=== PATIENT | male | born 1965 | race Caucasian/White ===

== ENCOUNTER 2019-02-12 06:38 | Observation (INO) | payer OTHER ==
--- OUTSIDE RECORDS SUMMARY | 2019-02-12 06:43 | XMS REPORT | Continuity of Care Document ---
:1965 External Reference #:[id number] Author Name Kaila Francisco PA-C Address [address] [place] [address] Care Team Providers Name Role Phone Phoenix Levi M.D. Care Team Information Advertising Supervisor Unavailable Jethro Kaplan MD Primary Care Physician Unavailable Payers Date Identification Numbers Payment Provider Subscriber Policy Number: [id number] [facility] Group Number: [id number] Group Name: [id number] [place] [address] PayID: [id number] Problems Active Problems Provider Date Essential hypertension Onset: 11/12/2006 Social History Type Date Description Comments Sex Unknown Occupation Coach Driver Tobacco Use Start: Unknown Never Smoked Cigarettes Tobacco Use Start: Unknown End: Unknown current.no Tobacco Use Start: Unknown End: Unknown current.no Smokeless Tobacco current.no ETOH Use Current Alcohol Use Occasionally Tobacco Use Start: Unknown Patient has never smoked Smoking Status Reviewed: 01/26/19 Patient has never smoked Allergies, Adverse Reactions, Alerts Description No Known Drug Allergies Medications Active Medications SIG Qnty Indications Ordering Date Provider Nasonex 2qd - Use 2 [place] 90Days 380.23 Mamadou Ramirez 11/11/2007 50mcg/Act Susp In Each Nostril MD Wendy Every Day Levothyroxine Sodium Jethro Kaplan MD 125mcg Tablets Potassium Chloride ER Jethro Kaplan MD 10Meq Tablets ER Xyzal Allergy 24HR 1 by mouth every Unknown 5mg day Tablets Metoprolol Succinate Take 1 Tablet By Unknown ER Mouth Once Daily 25mg Tablets ER 24HR Spironolactone/Hydroch Take 1 Tablet By Unknown lorothiazide Mouth Once Daily 25-25mg For High Blood Tablets Pressure Amlodipine Besylate Take 1 Tablet By Unknown 10mg Mouth Once Daily Tablets History Medications Ciprodex 4 drops infected 7.500ml Mamadou Dumont. 03/05/2017 - 0.3-0.1% Suspension ear twice a day MD Wendy 02/20/2018 apply rebate rx bin: [id number] rxpcn: loyalty rxgrp:[id number] ambulance paramedic: [id number]) id#[id number] Ciprodex 4 drops infected 1Bottle Mamadou Dumont. 09/01/2014 - 0.3-0.1% Suspension ear bid for 7 days MD Wendy 03/05/2017 apply rebate rx bin: [id number] rxpcn: [employer] rxgrp:[id number] ambulance paramedic: [id number]) id#[id number] Calcium Carbonate/Vitamin 1 po tid with meals 120tabs Mamadou Ramirez 2013 - D MD Wendy 03/05/2017 [id number] Tablets Ciprodex 4 drops infected 1Bottle Mamadou Dumont. 07/11/2011 - 0.3-0.1% Suspension ear bid for 10 days MD Wendy 08/21/2013 apply rebate rx bin: [id number] rxpcn: loyalty rxgrp:[id number] ambulance paramedic: [id number]) id#[id number] Ciprodex 4 drops to right 1Bottle Mamadou Dumont. 06/14/2010 - 0.3-0.1% Suspension ear twice daily for MD Wendy 11/12/2012 7 days Dermotic 4 drops to affected 1Bottle 384.2 Mamadou Julia. 07/27/2009 - 0.01% Oil ear twice a day for 0 MD Wendy 06/14/2010 14 days Lotrimin AF 4 drops to right 1Bottle 380.2 Mamadou Dumotn. 07/13/2009 - 1% Solution ear twice a day for 3 MD Wendy 06/14/2010 2 weeks Ciprodex 4 drops right ear 2units 380.2 Mamadou Dumont. 06/24/2009 - 0.3-0.1% Suspension bid 3 MD Wendy 06/14/2010 Clarinex 1 PO qd 30tabs 380.2 Mamadou Ramirez 11/15/2006 - 5mg Tablets 3 MD Wendy 11/07/2007 Nasonex Intranasal [place] 2 puff Each Nostril 17gm 380.2 Mamadou Ramirez 2006 - 50mcg Daily 3 MD Wendy 11/11/2007 Suspension Floxin 4 GTT To Right Ear 10units 380.2 Mamadou Ramirez 11/15/2006 - 0.3% Solution Twice A Day For 10 3 MD Wendy 11/07/2007 Days Tylenol Unknown 11/12/2006 - 11/07/2007 Lisinopril Unknown - 06/02/2008 ? BP Med Unknown - 09/02/2008 Avapro Unknown - 08/21/2013 Antonol Unknown - 11/12/2012 Hydrochlorothiazide Unknown - 03/05/2017 Amlodipine Unknown - 03/05/2017 Atenolol Unknown - 03/05/2017 Methimazole Unknown - 09/02/2013 Levothyroxine Sodium Unknown - 03/05/2017 Hydrochlorothiazide 1 tab daily Jethro Kaplan - 25mg 01/27/2019 Tablets Atenolol 1 by mouth every Unknown - 25mg Tablets day 01/27/2019 Vital Signs Date Vital Result Comment 01/27/2019 2:59pm Weight 345.00 lb Weight 156.492 kg Height 74.6 inches 6'2.60" Height in cm's 189.5 cm BMI (Body Mass Index) 43.6 kg/m2 02/20/2018 3:03pm Weight 355.00 lb Weight 161.028 kg Height 74.6 inches 6'2.60" Height in cm's 189.5 cm BMI (Body Mass Index) 44.8 kg/m2 03/05/2017 11:00am BP Systolic 180 mmHg BP Diastolic 93 mmHg Heart Rate 60 /min Weight 350.00 lb Weight 158.760 kg Height 74.6 inches 6'2.60" Height in cm's 189.5 cm BMI (Body Mass Index) 44.2 kg/m2 04/13/2015 3:01pm BP Systolic 161 mmHg BP Diastolic 92 mmHg Heart Rate 55 /min Respiratory Rate 16 /min Weight 364.00 lb Weight 165.110 kg Height 74.6 inches 6'2.60" Height in cm's 189.5 cm BMI (Body Mass Index) 46.0 kg/m2 04/07/2014 2:59pm BP Systolic 164 mmHg BP Diastolic 92 mmHg Heart Rate 59 /min Respiratory Rate 17 /min Weight 364.00 lb Weight 165.110 kg Height 74.6 inches 6'2.60" Height in cm's 189.5 cm BMI (Body Mass Index) 46.0 kg/m2 09/30/2013 2:57pm BP Systolic 173 mmHg BP Diastolic 107 mmHg Heart Rate 60 /min Respiratory Rate 17 /min Weight 226.00 lb Weight 102.514 kg Height 74.6 inches 6'2.60" Height in cm's 189.5 cm BMI (Body Mass Index) 28.5 kg/m2 09/04/2013 10:02am BP Systolic 147 mmHg BP Diastolic 95 mmHg Heart Rate 86 /min Respiratory Rate 16 /min Weight 226.00 lb Weight 102.514 kg Height 74.6 inches 6'2.60" Height in cm's 189.5 cm BMI (Body Mass Index) 28.5 kg/m2 09/02/2013 3:44pm BP Systolic 165 mmHg BP Diastolic 93 mmHg Heart Rate 87 /min Respiratory Rate 17 /min Weight 226.00 lb Weight 102.514 kg Height 74.6 inches 6'2.60" Height in cm's 189.5 cm BMI (Body Mass Index) 28.5 kg/m2 08/21/2013 11:17am BP Systolic 147 mmHg BP Diastolic 82 mmHg Heart Rate 53 /min Respiratory Rate 17 /min Weight 226.00 lb Weight 102.514 kg Height 74.6 inches 6'2.60" Height in cm's 189.5 cm BMI (Body Mass Index) 28.5 kg/m2 11/27/2012 9:15am BP Systolic 146 mmHg BP Diastolic 76 mmHg Heart Rate 72 /min Respiratory Rate 16 /min Weight 226.00 lb Weight 102.514 kg Height 74.6 inches 6'2.60" Height in cm's 189.5 cm BMI (Body Mass Index) 28.5 kg/m2 11/12/2012 9:50am BP Systolic 146 mmHg BP Diastolic 82 mmHg Heart Rate 72 /min Respiratory Rate 16 /min Weight 226.00 lb Weight 102.514 kg Height 74.6 inches 6'2.60" Height in cm's 189.5 cm BMI (Body Mass Index) 28.5 kg/m2 09/02/2008 10:15am Heart Rate 80 /min Respiratory Rate 16 /min Weight 310.00 lb Weight 140.616 kg 06/02/2008 9:26am BP Systolic 168 mmHg BP Diastolic 109 mmHg Heart Rate 83 /min Respiratory Rate 16 /min 11/07/2007 3:03pm BP Systolic 181 mmHg BP Diastolic 110 mmHg Heart Rate 71 /min Respiratory Rate 16 /min 05/08/2007 3:17pm BP Systolic 165 mmHg BP Diastolic 96 mmHg Heart Rate 68 /min Respiratory Rate 16 /min 11/15/2006 2:29pm BP Systolic 156 mmHg BP Diastolic 118 mmHg Heart Rate 87 /min Respiratory Rate 16 /min Results Test Date Facility Test Result H/L Range Note Laboratory test 08/28/2013 [facility] Calcium 8.9 mg/ dL 8.6-10.3 finding c/o [place] [address] [phone] Procedures Date Code Description Status 08/28/2013 68314 Thyroidectomy, Total Completed 08/28/2013 22344 Thyroidectomy, Total Completed 12/23/2012 95845 Tympanometry Completed 12/23/2012 97492 Comprehensive Audiogram Completed 06/14/2010 47021 Binocular Microscopy Completed 07/01/2009 95889 Binocular Microscopy Completed 06/24/2009 56197 Binocular Microscopy Completed 06/15/2009 83213 Insurance Credit-Unclaimed Retraction Completed 04/03/2007 06545 Tympanostomy W/Tube Local Or Topical Anes. Completed 11/15/2006 63119 Tympanometry Completed 11/15/2006 11025 Comprehensive Audiogram Completed Encounters Type Date Location Provider Dx Diagnosis Office Visit 01/27/2019 [facility] Jewel Chin7.33 Obstructive sleep 3:00p 07/15/07 PA-C apnea (adult) (pediatric) Office Visit 02/20/2018 [facility] Mamadou Holloway7.33 Obstructive sleep 2:45p 07/15/07 MD Wendy apnea (adult) (pediatric) H72.01 Central perforation of tympanic membrane, right ear C73 Malignant neoplasm of thyroid gland Office Visit 03/05/2017 [facility] Mamadou Ramirez G47.33 Obstructive sleep 10:45a 07/15/07 MD Wendy apnea (adult) (pediatric) H72.01 Central perforation of tympanic membrane, right ear C73 Malignant neoplasm of thyroid gland Office Visit 04/13/2015 [facility] Mamadou Ramirez H72.91 Unspecified 3:00p 07/15/07 MD Wendy perforation of tympanic membrane, right ear C73 Malignant neoplasm of thyroid gland G47.30 Sleep apnea, unspecified Office 04/07/2014 [facility] Mamadou Ramirez 384.20 Perforation Of Tympanic Visit 3:00p 07/15/07 MD Wendy Membrane/Unspecified 193 Neoplasm, Malignant, Thyroid Gland 780.57 Apnea, Sleep Not Elsewhere Classified /Unspecified Office Visit 08/21/2013 11:15a [facility],After 07/15/07 Mamadou Ramirez 241.0 Nodule, MD Wendy Thyroid 242.20 Hyperthyroidism, Multinodular W/O Thyrotoxic Office 11/27/2012 [facility]After Mamadou Ramirez 384.20 Perforation Of Tympanic Visit 9:15a 07/15/07 MD Wendy Membrane/Unspecified Office 11/12/2012 [facility],After Mamadou Ramirez 384.20 Perforation Of Tympanic Visit 9:45a 07/15/07 MD Wendy Membrane/Unspecified 381.10 Otitis Media, Chronic Simple Or Unspecified Office 07/11/2011 [facility] Mamadou Ramirez 384.20 Perforation Of Tympanic Visit 1:45p 07/15/07 MD Wendy Membrane/Unspecified 381.10 Otitis Media, Chronic Simple Or Unspecified Office 07/06/2010 [facility],After Mamadou Ramirez 384.20 Perforation Of Tympanic Visit 11:30a 07/15/07 MD Wendy Membrane/Unspecified 381.10 Otitis Media, Chronic Simple Or Unspecified 401.9 High Blood Pressure Or Hypertension/Unspecified Office 06/14/2010 [facility],After Mamadou Ramirez 384.20 Perforation Of Tympanic Visit 11:15a 07/15/07 MD Wendy Membrane/Unspecified 381.10 Otitis Media, Chronic Simple Or Unspecified 401.9 High Blood Pressure Or Hypertension/Unspecified Office 08/11/2009 [facility],After Mamadou Ramirez 384.20 Perforation Of Tympanic Visit 3:30p 07/15/07 MD Wendy Membrane/Unspecified 381.10 Otitis Media, Chronic Simple Or Unspecified 401.9 High Blood Pressure Or Hypertension/Unspecified Office 07/27/2009 [facility],After Mamadou Ramirez 384.20 Perforation Of Tympanic Visit 3:15p 07/15/07 MD Wendy Membrane/Unspecified 381.10 Otitis Media, Chronic Simple Or Unspecified 401.9 High Blood Pressure Or Hypertension/Unspecified Office 07/13/2009 [facility],After Mamadou Ramirez 384.20 Perforation Of Tympanic Visit 1:30p 07/15/07 MD Wendy Membrane/Unspecified 380.23 Otitis Externa, Chronic 401.9 High Blood Pressure Or Hypertension/Unspecified Office Visit 07/01/2009 9:45a [facility],After 07/15/07 [place], 380.23 Otitis Sherry PUBLIC RELATIONS CONSULTANT Externa, Chronic 384.20 Perforation Of Tympanic Membrane/Unspecified 401.9 High Blood Pressure Or Hypertension/Unspecified Office Visit 06/24/2009 10:45a [facility],After 07/15/07 [place], 380.23 Otitis Sherry PUBLIC RELATIONS CONSULTANT Externa, Chronic 384.20 Perforation Of Tympanic Membrane/Unspecified 401.9 High Blood Pressure Or Hypertension/Unspecified Office Visit 09/02/2008 [facility],After Mamadou Ramirez 780.57 Apnea, Sleep Not 10:15a 07/15/07 MD Wendy Elsewhere Classified /Unspecified 384.20 Perforation Of Tympanic Membrane/Unspecified 401.9 High Blood Pressure Or Hypertension/Unspecified Office 06/02/2008 [facility],After Mamadou Ramirez 384.20 Perforation Of Tympanic Visit 9:15a 07/15/07 MD Wendy Membrane/Unspecified 780.57 Apnea, Sleep Not Elsewhere Classified /Unspecified 401.9 High Blood Pressure Or Hypertension/Unspecified Office 11/07/2007 [facility],After Mamadou Ramirez 389.03 Hearing Loss, Visit 2:45p 07/15/07 MD Wendy Conductive/Middle Ear 384.20 Perforation Of Tympanic Membrane/Unspecified 477.8 Rhinitis, Perennial, Allergy 401.9 High Blood Pressure Or Hypertension/Unspecified 786.09 Snoring Office Visit 05/08/2007 [facility],After Mamadou Ramirez 381.81 Dysfunction Of 3:00p 07/15/07 MD Wendy Eustachian Tube 389.03 Hearing Loss, Conductive/Middle Ear 401.9 High Blood Pressure Or Hypertension/Unspecified Office Visit 02/21/2007 [place],After Mamadou Ramirez 381.81 Dysfunction Of 11:00a 07/15/07 MD Wendy Eustachian Tube 380.23 Otitis Externa, Chronic 380.4 Impacted Cerumen / Wax 401.9 High Blood Pressure Or Hypertension/Unspecified 477.8 Rhinitis, Perennial, Allergy Office Visit 11/15/2006 [facility],After Mamadou Ramirez 381.81 Dysfunction Of 2:45p 07/15/07 MD Wendy Eustachian Tube 462-2 Sore Throat 401.9 High Blood Pressure Or Hypertension/Unspecified 389.03 Hearing Loss, Conductive/Middle Ear
[2019-02-12] MEDS ORDERED: NS 0.9% 1000 ML** 1,000 ML IV ONE (06:46)
[2019-02-12] MEDS ORDERED: Diltiazem IV push/loading dose 5 MG/ML 5 ML vial (25 mg) IV SLOW PU ONE (06:51)
--- NOTE | 2019-02-12 06:55 | ED ---
Palpitations / Dysrhythmia - HPI Summary HPI Summary: Patient is a 53-year-old male who presents emergency department for palpitations intermittently times one week. Patient states has been having a sensation that his heart is "flip flopping" intermittently for 1 week. Patient states since last night feeling has been constant. He notes history of thyroid cancer with resection and is currently taking Synthroid. Patient states he's felt irregular heartbeat in the past but has never been diagnosed with any arrhythmias does not take any medication for his heart. Otherwise past medical history of obesity and hypertension. Symptoms are moderate in severity. No current modifying factors. - History of Current Complaint Time Seen by Provider: 02/12/19 06:45 Hx Obtained From: Patient - Allergy/Home Medications Allergies/Adverse Reactions: Allergies Allergy/AdvReac Type Severity Reaction Status Date / Time No Known Allergies Allergy Verified 08/21/17 10:53 Home Medications: Home Medications Metoprolol Succinate [Metoprolol Succinate ER] 25 mg PO DAILY 02/12/19 [History Confirmed 02/12/19] PMH/Surg Hx/FS Hx/Imm Hx Previously Healthy: Yes Endocrine/Hematology History: Reports: Hx Thyroid Disease Cardiovascular History: Reports: Hx Hypertension Denies: Other Cardiovascular Problems/Disorders Respiratory History: Denies: Other Respiratory Problems/Disorders GI History: Denies: Other GI Disorders History: Denies: Other Problems/Disorders Musculoskeletal History: Reports: Hx Tendonitis - RENE HEELS Denies: Other Musculoskeletal History Sensory History: Denies: Hx Contacts or Glasses, Hx Hearing Aid Opthamlomology History: Denies: Hx Contacts or Glasses Neurological History: Denies: Other Neuro Impairments/Disorders - Surgical History Surgery Procedure, Year, and Place: RIGHT ANKLE 1982, [facility] [place]. 2 UMBILICAL HERNIA 1995, [facility] [place]. RIGHT EARDRUM 1999, [facility] [place] Hx Anesthesia Reactions: No Infectious Disease History: Denies: Traveled Outside the [place] in Last 30 Days - Family History Known Family History: Positive: Non-Contributory - Social History Occupation: Employed Full-time Lives: With Family Alcohol Use: Rare Alcohol Amount: 4 DRINKS A MONTH Substance Use Type: Reports: None Hx Tobacco Use: No Have You Smoked in the Last Year: No Review of Systems Constitutional: Negative Negative: Fever, Chills Positive: Palpitations Respiratory: Negative Negative: Shortness Of Breath Gastrointestinal: Negative Neurological: Negative All Other Systems Reviewed And Are Negative: Yes Physical Exam Triage Information Reviewed: Yes Vital Signs Reviewed: Yes Appearance: Positive: Well-Appearing - Pt. sitting up in bed in NAD. present. Skin: Positive: Warm, Dry Head/Face: Positive: Normal Head/Face Inspection Eyes: Positive: Normal, EOMI Neck: Positive: Supple Respiratory/Lung Sounds: Positive: Breath Sounds Present Cardiovascular: Positive: IRR, Tachycardia Musculoskeletal: Positive: Normal, Strength/ROM Intact Neurological: Positive: Normal, CN Intact II-III Psychiatric: Positive: Affect/Mood Appropriate Diagnostics - Laboratory Result Diagrams: 02/12/19 06:51 02/12/19 06:57 Lab Statement: Any lab studies that have been ordered have been reviewed, and results considered in the medical decision making process. Course/Dx - Course Course Of Treatment: Pt. presenting with intermittent palpitations x 1 week. BP stable. ECG shows rapid a fib. ECG done at 0639 shows atrial fibrillation at a rate of 135bpm. Pt. started on IV fluids and given a dose of 20mg IV cardizem. Rate slowed into 80-100. Case discussed with Dr. Rossi, hospitalist, and she will admit for new onset afib. Pt. has remained stable in ER. - Diagnoses Differential Diagnosis/HQI/PQRI: Positive: Panic Disorder, Paroxymal SVT, Pericarditis Provider Diagnoses: Atrial fibrillation Discharge - Sign-Out/Discharge Documenting (check all that apply): Patient Departure Patient Received Moderate/Deep Sedation with Procedure: No - Discharge Plan Condition: Stable Disposition: ADMITTED TO [facility] Referrals: Jethro Kaplan MD [Primary Care Provider] - - Billing Disposition and Condition Condition: STABLE Disposition: Admitted to [facility]
[2019-02-12 07:23] LABS: ABS Basophils 0.1 10^3/ul (0-0.2); ABS Eosinophils 0.4 10^3/ul (0-0.6); ABS Lymphocytes 2.5 10^3/ul (1.0-4.8); ABS Monocytes 0.6 10^3/ul (0-0.8); ABS Neutrophils 4.6 10^3/ul (1.5-7.7); Eosinophil % 4.6 %; Hematocrit 46 % (42-52); Hemoglobin 16.4 g/dL (14.0-18.0); Lymphocyte % 30.5 %; Mean Corpuscular HGB Conc 36 g/dL (31-36); Mean Corpuscular Hemoglobin 29 pg (27-31); Mean Corpuscular Volume 80 fL (80-94); Mean Platelet Volume 8.3 fL (7.4-10.4); Nucleated Red Blood Cells % 0.1; Platelet Count 251 10^3/uL (150-450); Red Blood Count 5.77 10^6 /uL (4.18-5.48); Red Cell Distribution Width 13 % (10-15); White Blood Count 8.2 10^3/uL (3.5-10.8)
[2019-02-12 07:25] LABS: INR 0.97 (0.82-1.09)
[2019-02-12 07:32] LABS: Albumin 4.2 g/dL (3.2-5.2); Albumin/Globulin Ratio 1.4 (1-3); Calcium 9.4 mg/dL (8.6-10.3); EGFR African American 101.1 (>60); EGFR Non-African American 83.6 (>60); Globulin 2.9 g/dL (2-4); Magnesium 2.1 mg/dL (1.9-2.7); Potassium 3.4 mmol/L (3.5-5.0); Total Bilirubin 0.6 mg/dL (0.2-1.0); Total Protein 7.1 g/dL (6.4-8.9)
[2019-02-12] MEDS ORDERED: Metoprolol Succinate XL TAB* 25 MG PO ONE (07:43)
[2019-02-12] MEDS ORDERED: Potassium Chlor TAB* 20 MEQ TAB.ER PO ONE (07:58)
[2019-02-12] MEDS ORDERED: Diltiazem TAB* 30 MG PO ONE (08:36)
[2019-02-12 08:39] LABS: TSH (Thyroid Stimulating Horm) 0.1 mcIU/mL (0.34-5.60)
[2019-02-12] MEDS: Apixaban* 5 MG TAB PO SCH ×2 (08:57→20:11)
[2019-02-12] MEDS ORDERED: fentaNYL* 50 MCG/ML 2 ML VIAL (100 MCG VIAL) ONE ×2 (09:56→10:42)
[2019-02-12] MEDS ORDERED: Midazolam* 1 MG/ML 5 ML VIAL (5 MG) ONE (09:56)
[2019-02-12] MEDS ORDERED: Naloxone* 0.4 MG/ML 1 ML VIAL ONE (09:57)
[2019-02-12] MEDS ORDERED: Lidocaine 2% VISCOUS* 15 ML UDC ONE ×2 (09:57)
[2019-02-12] MEDS ORDERED: Flumazenil* 0.1 MG/ML 5 ML MDV ONE (09:57)
--- NOTE | 2019-02-12 10:13 | HP ---
CC: Dr. Nguyen; Dr. Levi; Dr. Pleitez; Dr. Kaplan * HISTORY AND PHYSICAL: DATE OF ADMISSION: 02/12/19 PRIMARY CARE PROVIDER: Dr. Kaplan. CHIEF COMPLAINT: Palpitations. HISTORY OF PRESENT ILLNESS: Bronson Lan is a 53-year-old male with history of obesity, hypertension, obstructive sleep apnea, status post total thyroidectomy for thyroid cancer, who presented to the hospital complaining of palpitation for approximately couple of days. The patient stated that ever since Saturday he would have an episode of fast irregular heartbeat that would resolve but they would get more and more frequent and for the past couple of days he would have the sensation almost all the time. He denies any chest pain , shortness of breath. His exercise tolerance had been fine. Nevertheless, it concerned him and he finally came into the emergency department today for evaluation. He was noted to be in atrial fibrillation with rapid ventricular response with heart rate in the 120s. He is going to be placed on overnight observation, likely cardioverted later on today and placed on anticoagulation. PAST MEDICAL HISTORY: 1. History of status post total thyroidectomy for papillary thyroid cancer under the care of Dr. Nguyen and Dr. Levi. 2. History of obstructive sleep apnea, under the care of Dr. Nguyen. The patient uses CPAP. 3. History of hypertension. 4. Status post transumbilical hernia repair. 5. History of right ankle ORIF. 6. History of tympanic membrane surgery in the past for perforation. MEDICATIONS: At home include: 1. Metoprolol succinate 25 mg daily. 2. Amlodipine 10 mg at bedtime. 3. Potassium chloride 10 mEq b.i.d. 4. Levothyroxine 250 mcg daily. 5. Hydrochlorothiazide 25 mg at bedtime. ALLERGIES: No known drug allergies. FAMILY HISTORY: Positive for brother who is in his 50s and is dealing with metastatic colon cancer that was diagnosed 4 years prior. Another brother with history of heart disease and cardiomyopathy in his 50s. He was extremely obese as per patient. SOCIAL HISTORY: The patient denies any tobacco or drug use. He drinks alcohol rarely. 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 His , Brianna, is his surrogate. He is a full code. REVIEW OF SYSTEMS: Please see the history of present of illness. All the remaining 12 systems were reviewed with the patient and were otherwise negative. PHYSICAL EXAMINATION GENERAL: The patient is a pleasant 53-year-old obese male with a BMI of 46, who appears in no acute distress. Alert, awake, and oriented x3. VITAL SIGNS: Blood pressure of 150/94, heart rate of 112 and irregularly irregular, respiratory rate 15, oxygen saturation 97% on room air, temperature of 97.5. HEENT: Head: Atraumatic, normocephalic. Eyes: Pupils are equal and reactive to light and accommodation. Oropharynx is clear. Mucosa moist. NECK: Supple. No JVD. No bruits bilaterally. RESPIRATORY: Clear to auscultation bilaterally. CARDIOVASCULAR: Irregularly irregular rhythm. No murmur. ABDOMEN: Soft, nontender. Bowel sounds are present in all 4 quadrants. EXTREMITIES: There is no edema. Pulses are +2 bilaterally. No clubbing or cyanosis. NEUROLOGIC EVALUATION: Speech is clear. Cranial nerves II through XII are grossly intact. Motor strength is 5/5 bilaterally. SKIN: On evaluation of the skin, no ecchymotic areas or rashes noted. PSYCHIATRIC EVALUATION: Oriented x3 with no evidence of anxiety or depression. LABORATORY DATA: Showed white blood cell count of 8.2, hemoglobin of 16.4, hematocrit of 46, and platelets of 251. INR of 0.97. Sodium was 138, potassium 3.4, chloride 103, carbon dioxide 26, BUN 19, creatinine 0.95. Liver function tests unremarkable. Alkaline phosphatase elevated at 120. Troponin of 0. TSH of 0.1. The patient's EKG showed atrial fibrillation with a heart rate of 135 with possible old inferior infarct in leads II, III, and aVF with Q waves in leads II , III, and aVF. Portable chest x-ray, impression: "No focal airspace consolidation." ASSESSMENT AND PLAN: 1. In regard to patient's atrial fibrillation, I discussed the case with Dr. Pleitez who will likely cardiovert the patient later on today and perform a PETROS. For the time being, the patient is going to get his Toprol-XL as well as dose of Cardizem p.o. and anticoagulation with Eliquis that was discussed with the patient. 2. In regard to patient's postsurgical hypothyroidism, that had been controlled with Synthroid. His TSH is 0.1. I suspect that the patient's TSH is supposed to be somewhat suppressed due to his history of papillary thyroid cancer, but I will briefly discuss it with Dr. Levi to make that the patient is at correct dose in face of his new cardiac arrhythmia. 3. In regard to patient's hypertension, his metoprolol is going to be continued. 4. For DVT prophylaxis, the patient will be placed on Eliquis as mentioned above. 5. For obstructive sleep apnea, the patient is going to be continued on his CPAP from home. 6. Patient's code status is full. His surrogate is his . TIME SPENT: Approximately 65 minutes was spent on admission of this patient; more than half that time was spent [id number] with the patient during the interview and physical exam. [id number] #: [id number] MTDD
--- NOTE | 2019-02-12 10:27 | CONSULT ---
Subjective Date of Service: 02/12/19 Interval History: Admission and consult Date: 02/12/19 Provider: Nella Rossi MD/Hospitalist PCP Dr. Kaplan CHIEF COMPLAINT: Palpitations Reason for consult: Atrial fibrillation HISTORY OF PRESENT ILLNESS: Bronson Lan is a 53-year-old man with a history as below. He has had brief palpitations in the past. He now has has had palpitations ongoing since at least Saturday. He denies any chest discomfort, change in breathing or presyncope/syncope. His 02 saturations are high 90's on room air. He was noted to have difficult to control ventricular rates in the ER. He denies any gastroesophageal disorder or difficult swallowing. He does not take aspirin. He has rare NSAID use and is agreeable to use acetaminophen instead. PAST MEDICAL HISTORY: 1. History of status post total thyroidectomy for papillary thyroid cancer under the care of Dr. Nguyen and Dr. Levi. 2. History of obstructive sleep apnea, under the care of Dr. Nguyen. Adherent with CPAP. 3. History of hypertension, recently had spironolactone-hctz added to regimen 4. Status post transumbilical hernia repair. 5. History of right ankle ORIF. 6. History of tympanic membrane surgery in the past for perforation. MEDICATIONS: At home include: 1. Metoprolol succinate 25 mg daily. 2. Amlodipine 10 mg at bedtime. 3. Potassium chloride 10 mEq b.i.d. 4. Levothyroxine 250 mcg daily. 5. spironolactone-Hydrochlorothiazide 25 mg at bedtime. ALLERGIES: No known drug allergies. FAMILY HISTORY: Positive for brother who is in his 50s and is dealing with metastatic colon cancer that was diagnosed 4 years prior. Another brother with history of heart disease and cardiomyopathy in his 50s. He was extremely obese as per patient. SOCIAL HISTORY: The patient denies any tobacco or drug use. He drinks alcohol rarely. 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 His , Brianna , is his surrogate and she is present. He is a full code. Medications Active Medications: Apixaban (Eliquis*) 5 mg PO BID [facility] Last Admin: 02/12/19 08:57 Dose: 5 mg Sodium Chloride (Ns 0.9% 1000 Ml) 1,000 mls @ 75 mls/hr IV PER RATE [facility] Levothyroxine Sodium (Synthroid Tab*) 250 mcg PO 0600 [facility] Metoprolol Succinate (Toprol Xl Tab*) 25 mg PO DAILY [facility] Potassium Chloride (Klor Con Er Tab*) 10 meq PO BID [facility] Home Medications: Levothyroxine TAB* [Synthroid TAB*] 250 mcg PO QAM 08/16/17 [History Confirmed 02/12/19] Hydrochlorothiazide TAB* [Hydrodiuril TAB*] 25 mg PO BEDTIME 08/21/17 [History Confirmed 02/12/19] Potassium Chloride 10 meq PO BID 08/21/17 [History Confirmed 02/12/19] amLODIPine TAB* [Norvasc 5 mg TAB*] 10 mg PO BEDTIME 08/21/17 [History Confirmed 02/12/19] Metoprolol Succinate [Metoprolol Succinate ER] 25 mg PO DAILY 02/12/19 [History Confirmed 02/12/19] Review of Systems - Measurements Intake and Output: Intake and Output Last 24 Hours 02/10/19 02/11/19 02/12/19 02/13/19 06:59 06:59 06:59 06:59 Intake Total 1000 Balance 1000 Weight 340 lb Intake: IV Fluids 1000 - Review of Systems Constitutional Symptoms: Negative: Weight Gain, Weight Loss, Weakness, Fatigue, Fever, Night Sweats Dermatology: Negative: Rash, Skin Lesions HEENT: Negative: Change in Hearing, Vertigo, Dental Problems Eyes: Negative: Change in Vision, Double Vision Thyroid: Positive: Palpitations Negative: Thyroid Nodule, Cold Intolerance, Heat Intolerance, Weight Loss, Weight Gain Pulmonary: Negative: Respiratory Distress, Shortness of Breath, Home Oxygen Cardiology: Positive: Palpitations Negative: Chest Pain, Shortness of Breath, Swelling of Ankles, Peripheral Vascular Dis, Edema, Faintness, Syncope, Claudication, Paroxysmal Nocturnal Dyspnea, Orthopnea Gastroenterology: Negative: Abdominal Pain, Nausea, Vomiting, Anorexia, Haematemesis, Melena Genital - Urinary: Negative: Dysuria, Hematuria, Nocturia Musculoskeletal: Negative: Joint Pain, Joint Stiffness Endocrinology: Negative: Family Hx Endocrine Disorders, Obesity, Diabetes, Hyperglycemia, Hypoglycemia, Diabetic Foot Ulcers, Calluses, Hirsutism, Menstrual Abnormalities , Polydipsia, Polyuria, Gynecomastia, Pituitary Disease, Other Hematologic/Lymphatic: Negative: Use of Anticoagulant, Use of Antiplatelet Drugs Neurology: Negative: Change in Speech, Change in Sphincter Function, Change in Walking Psychiatry: Negative: Unusual Anxiety, Suicidal Ideation Allergic/Immunologic: Negative: Hx HIV, Immunocompromise Review of Systems Statement: All other review of systems negative, unless stated above. Objective Vital Signs: Temp Pulse Resp BP Pulse Ox 98.1 F 110 20 145/89 96 02/12/19 09:21 02/12/19 10:01 02/12/19 10:07 02/12/19 09:51 02/12/19 10:01 Appearance: nad, pleasant Ears/Nose/Mouth/Throat: Clear Oropharnyx, Mucous Membranes Moist Neck: NL Appearance and Movements; NL JVP, Trachea Midline Respiratory: Symmetrical Chest Expansion and Respiratory Effort, Clear to Auscultation Cardiovascular: - - irregularly irregular, no significant murmur Abdominal: - - soft, obese, nontender Lymphatic: No Cervical Adenopathy Extremities: No Edema, No Clubbing, Cyanosis Skin: No Rash or Ulcers Neurological: Alert and Oriented x 3 Laboratory Results: 02/12/19 06:51 02/12/19 06:57 INR (Anticoag Therapy) 0.97 (0.82-1.09) 02/12/19 06:57 Total Bilirubin 0.60 mg/dL (0.2-1.0) 02/12/19 06:57 AST 17 U/L (13-39) 02/12/19 06:57 ALT 22 U/L (7-52) 02/12/19 06:57 Alkaline Phosphatase 120 U/L (34-104) H 02/12/19 06:57 Total Protein 7.1 g/dL (6.4-8.9) 02/12/19 06:57 Albumin 4.2 g/dL (3.2-5.2) 02/12/19 06:57 Globulin 2.9 g/dL (2-4) 02/12/19 06:57 Albumin/Globulin Ratio 1.4 (1-3) 02/12/19 06:57 TSH 0.10 mcIU/mL (0.34-5.60) L 02/12/19 06:57 02/12/19 06:57 Troponin I 0.00 mg 2.1 Diagnostic Imaging: CXR Exam Date: 02/12/19 The film is degraded by poor exposure. Overlying support devices obscure the [id number]. The lungs are clear. There is no pleural effusion. The cardiomediastinal silhouette is within normal limits. IMPRESSION: No focal airspace consolidation. EKG Data: ekg on admission afib 135 bpm, rv strain pattern of s1/q3/t3 Assessment/Plan 1. Symptomatic atrial fibrillation, chads2-vasc score at least 1 2. Obesity 3. HTN 4. Sleep apnea 5. Hypothyroidism s/p thyroidectomy - Start eliquis 5 mg po bid - Continue [employer] medications except change amlodipine to long acting diltiazem 180 mg po daily (ordered) to help rate control future episodes - PETROS/CV today, risks, benefits and alternatives discussed and patient wishes to proceed - We discussed need for weight loss as likely main underlying cause of arrhythmia - Would ensure thyroid dose/labs is at goal Thank you for allowing me to participate in the cardiovascular care of this patient. Please do not hesitate to contact me with questions or concerns.
[2019-02-12] MEDS ORDERED: diPHENhydraMINE IV* 50 MG/ML 1 ml VIAL (BENADRYL) ONE (10:44)
--- NOTE | 2019-02-12 11:09 | PROCNOTE ---
Cardiology Procedure Note PETROS/CV note 02/12/2019 Risks, benefits alternatives discussed and patient wished to proceed Total 12 mg IV versed, 125 mcg IV fentanyl, 50 mg IV benadryl used for conscious sedation. Despite high doses of sedation, patient remained with difficult to cooperate during exam and study was terminated after confirming no LA/JULIA thrombus Patient cardioverted from atrial fibrillation to sinus rhythm with 200 J external electrical sync x 1 Patient had already received a dose of 5 mg eliquis and will continue po bid Will arrange for full echo later today If patient otherwise remains stable could be discharged from a cardiac standpoint later today
[2019-02-12] MEDS ORDERED: Diltiazem TAB* 30 MG PO SCH (12:00)
[2019-02-12] MEDS ORDERED: Perflutren Lipid Microsphere* 3 ML VIAL ONE (12:01)
[2019-02-12] MEDS: Potassium Chlor TAB* 10 MEQ TAB.ER PO SCH ×2 (13:25→20:11)
[2019-02-12] MEDS: Levothyroxine TAB* 125 MCG TAB PO SCH (13:30)
[2019-02-12] MEDS: Spironolactone/HCTZ 25-25 MG* 1 TAB PO SCH (13:36)
--- NOTE | 2019-02-12 15:01 | TEE ---
*[facility]* [place] [address] Fax #: [phone] Transesophageal Echocardiogram Patient: Bronson Lan : 1965 Study Date: 02/12/2019 Age: 53 Gender: M HR: 126 bpm Height: 72 in /182.9 cm BSA: 2.88 m^2 Weight: 340 lb /154.5 kg BMI: 46.2 kg/m^2 *Licensed Insurance Agent: Kelli Patel RDCS RN *Referring Physician: * Nella Rossi *Reading Physician: * Collin Pleitez MD Indications: Atrial Fibrillation. History: Obstructive sleep apnea on CPAP. Thyroid cancer with resection. Risk factors: Hypertension. Morbidly obese. Conclusions Summary: Left atrium: There is no evidence of a thrombus in the atrial cavity or appendage. Recommendations: Study was terminated early due to patients inability to cooperate with exam despite high doses of sedation medicaton. Follow by successful cardioversion from atrial fibrillation to sinus rhythm. Full echocardiogram will be obtained. Study data: Diagnostic Transesophageal Echocardiogram. This is a limited exam due to the patient's inability to cooperate. The imaging was focused on the assessment of the left atrium and the left atrial appendage for thrombus. Consent: The risks and benefits of the procedure, including alternatives were discussed with the patient and/or their health care pharmaceutical specialty representative and written informed consent was obtained. Procedure: Initial setup: The patient was brought to the laboratory in the fasting state.Intravenous access was obtained. Surface ECG leads, heart rate, heart rhythm, blood pressure measurements, pulse oximetric signals, and mainstream end-tidal CO2 tracings were monitored throughout the procedure. Sedation. Moderate sedation was administered by nursing staff. History and physical as well as labs were reviewed. An oral bite block was inserted for protection of oral dentition. The patient was placed in the left lateral decubitus position. Topical anesthesia was obtained using viscous lidocaine. A transesophageal probe was inserted by the attending bobbin cleaner with some difficulty. Transesophageal echocardiography was performed. The study was technically difficult as a result of poor patient compliance. Image quality was good but the patient was unable to cooperate and the exam was aborted. Multiple 2D images were obtained and spectral Doppler was used. The transesophageal probe was removed. Location: Procedure room. Patient status: Inpatient. Patient room number: 451. Study completion: The patient tolerated the procedure well. There were no complications. Administered medications: Midazolam 10 mg IV. Fentanyl 100 mcg IV. Benadryl 50 mg IV. Findings Left atrium: The atrium is mildly to moderately dilated. There is no evidence of a thrombus in the atrial cavity or appendage. No spontaneous echo contrast is observed. Mitral valve: The valve is structurally normal. Aortic valve: The valve is structurally normal. The valve is trileaflet. Cusp separation is normal. There is no evidence of stenosis. Prepared and electronically signed by Collin Pleitez MD 02/12/2019 15:01
--- NOTE | 2019-02-12 15:08 | ECHO ---
*[facility]* [place] [address] Fax #: [phone] Transthoracic Echocardiogram Patient: Bronson Lan : 1965 Study Date: 02/12/2019 Age: 53 Gender: M HR: 75 bpm Height: 72 in /182.9 cm BSA: 2.88 m^2 Weight: 340 lb /154.5 kg BMI: 46.2 kg/m^2 *Timber Rider: Kelli Patel RDCS RN *Referring Physician: * Collin Pleitez MD *Reading Physician: * Collin Pleitez MD Indications: Abnormal EKG. Atrial Fibrillation. History: Obstructive sleep apnea on CPAP. Thyroid cancer with resection. Risk factors: Hypertension. Morbidly obese. Conclusions Summary: - Left ventricle: The cavity size is normal. Wall thickness is mildly increased. Systolic function is at the lower limits of normal. The estimated ejection fraction is 50-55%. Wall motion is normal; there are no regional wall motion abnormalities. - Right ventricle: The cavity size is normal. Systolic function is mildly reduced. - Left atrium: The atrium is mildly dilated. - Ascending aorta: The ascending aorta is mildly dilated at 3.9 cm. - No significant valvular abnormalities noted. Recommendations: None prior for comparison. Study data: Transthoracic echocardiogram. Procedure: Transthoracic echocardiography was performed. The study was technically limited due to body habitus. Intravenous Definity 3 ml was administered for image enhancement. Complete 2D, spectral Doppler, and color flow Doppler. Location: Procedure room. Patient status: Inpatient. Patient room number: 451. Rhythm: Normal sinus rhythm. Findings Left ventricle: The cavity size is normal. Wall thickness is mildly increased. Systolic function is at the lower limits of normal. The estimated ejection fraction is 50-55%. Wall motion is normal; there are no regional wall motion abnormalities. There is no consistent Doppler evidence of clinically significant diastolic dysfunction. Right ventricle: The cavity size is normal. Systolic function is mildly reduced. Left atrium: The atrium is mildly dilated. Right atrium: The atrium is normal in size. Mitral valve: The valve is structurally normal. There is no evidence of stenosis. There is no regurgitation. Aortic valve: Not well visualized. The leaflets are normal thickness. There is no evidence of stenosis. There is trace regurgitation. Tricuspid valve: Not well visualized. There is no evidence of stenosis. There is no significant regurgitation. Pulmonic valve: Not well visualized. There is no evidence of stenosis. There is trace regurgitation. Aorta: Aortic root: The aortic root is not dilated. Ascending aorta: The ascending aorta is mildly dilated at 3.9 cm. Aortic arch: The aortic arch is not dilated. Pericardium: There is no pericardial effusion. Pulmonary arteries: Not well visualized. Systemic veins: Inferior vena cava: Not well visualized. Measurements Left ventricle Value Ref Right atrium Value Ref YOLANDA, LAX 5.6 cm 4.2 - 5.8 ML dim, ES, A4C (H) 4.8 cm 2.6 - 4.4 ESD, LAX (H) 4.2 cm 2.5 - 4.0 SI dim, ES, A4C (H) 5.9 cm 3.4 - 5.3 FS, LAX 25 % 25 - 43 PW, ED (H) 1.4 cm 0.6 - 1.0 Aortic valve Value Ref IVS/PW, ED 1 Chen diam, ED 2.5 cm --------- E', lat chen, TDI (L) 7.9 cm/sec >=10.0 Peak v, S 1.44 m/sec --- ------ E/e', lat chen, 8 VTI, S 31.2 cm ------ --- TDI Mean grad, S 5.0 mm Hg --------- E', med chen, TDI (L) 4.8 cm/sec >=7.0 Peak grad, S 8.0 mm Hg --- ------ E/e', med chen, 14 LVOT/AV, VTI ratio 0.69 ------ --- TDI E', avg, TDI 6.4 cm/sec Mitral valve Value Ref E/e', avg, TDI 11 <=14 Peak E 0.67 m/sec --- ------ Peak A 0.89 m/sec --------- LVOT Value Ref Decel time 299 ms --------- Peak sarwat, S 0.89 m/sec Peak E/A ratio 0.8 --------- VTI, S 21.5 cm Mean grad, S 2 mm Hg Pulmonic valve Value Ref Peak v, S 0.73 m/sec --------- Ventricular septum Value Ref Peak grad, S 2.0 mm Hg --------- IVS, ED (H) 1.4 cm 0.6 - 1.0 Aortic root Value Ref Right ventricle Value Ref Root diam 3.6 cm <4.8 YOLANDA, LAX 3.7 cm YOLANDA minor ax, (H) 5.2 cm 1.9 - 3.5 Ascending aorta Value Ref A4C mid AAo AP diam, S 3.9 cm --------- Left atrium Value Ref Aortic arch Value Ref AP dim, ES 3.80 cm 3.00 - Arch diam 3.2 cm --------- 4.00 ML dim, A4C 4.8 cm Decending aorta Value Ref SI dim, A4C 5.8 cm Shefali peak sarwat 0.85 m/sec --------- Vol/bsa, ES, 1-p 25 ml/m^2 12 - 37 A4C Vol/bsa, ES, A/L 31 ml/m^2 16 - 34 Legend: (L) and (H) catracho values outside specified reference range. Prepared and electronically signed by Collin Pleitez MD 02/12/2019 15:07
[2019-02-12] MEDS: NS 0.9% 1000 ML** 1,000 ML IV SCH (16:10)
[2019-02-13] MEDS: NS 0.9% 1000 ML** 1,000 ML IV SCH (05:35)
[2019-02-13] MEDS: Levothyroxine TAB* 125 MCG TAB PO SCH (05:40)
[2019-02-13] MEDS: Potassium Chlor TAB* 10 MEQ TAB.ER PO SCH (08:52)
[2019-02-13] MEDS: Apixaban* 5 MG TAB PO SCH (08:52)
[2019-02-13] MEDS: Spironolactone/HCTZ 25-25 MG* 1 TAB PO SCH (08:52)
[2019-02-13] MEDS ORDERED: Diltiazem CD CAP* 180 MG PO SCH (09:00)
[2019-02-13] MEDS ORDERED: Metoprolol Succinate XL TAB* 25 MG PO SCH (09:00)
[2019-02-13 09:12] LABS: ABS Eosinophils 0.2 10^3/ul (0-0.6); ABS Lymphocytes 1.4 10^3/ul (1.0-4.8); ABS Monocytes 0.3 10^3/ul (0-0.8); ABS Neutrophils 3.7 10^3/ul (1.5-7.7); Eosinophil % 3.7 %; Hematocrit 44 % (42-52); Hemoglobin 15.1 g/dL (14.0-18.0); Lymphocyte % 25.1 %; Mean Corpuscular HGB Conc 35 g/dL (31-36); Mean Corpuscular Hemoglobin 28 pg (27-31); Mean Corpuscular Volume 81 fL (80-94); Mean Platelet Volume 7.8 fL (7.4-10.4); Nucleated Red Blood Cells % 0.1; Platelet Count 198 10^3/uL (150-450); Red Blood Count 5.37 10^6 /uL (4.18-5.48); Red Cell Distribution Width 13 % (10-15); White Blood Count 5.6 10^3/uL (3.5-10.8)
[2019-02-13 09:29] LABS: BUN/Creatinine Ratio 15.4 (8-20); Calcium 9.1 mg/dL (8.6-10.3); EGFR African American 106.3 (>60); EGFR Non-African American 87.8 (>60); Potassium 3.8 mmol/L (3.5-5.0)
--- NOTE | 2019-02-13 09:45 | PN ---
Subjective Date of Service: 02/13/19 Interval History: s/p atrial fibrillation cardioversion feels good wants to go home no cp, dypsnea or palpitations tele: NSR Medications Active Medications: Apixaban (Eliquis*) 5 mg PO BID [facility] Last Admin: 02/13/19 08:52 Dose: 5 mg Diltiazem HCl (Cardizem Cd Cap*) 180 mg PO DAILY [facility] Last Admin: 02/13/19 08:52 Dose: 180 mg HCTZ/Spironolactone (Aldactazide 25-25*) 1 tab PO DAILY [facility] Last Admin: 02/13/19 08:52 Dose: 1 tab Levothyroxine Sodium (Synthroid Tab*) 250 mcg PO 0600 [facility] Last Admin: 02/13/19 05:40 Dose: 250 mcg Metoprolol Succinate (Toprol Xl Tab*) 25 mg PO DAILY [facility] Last Admin: 02/13/19 08:52 Dose: 25 mg Potassium Chloride (Klor Con Er Tab*) 10 meq PO BID [facility] Last Admin: 02/13/19 08:52 Dose: 10 meq Objective Vital Signs: Temp Pulse Resp BP Pulse Ox 97.2 F 80 18 132/83 98 02/13/19 07:59 02/13/19 07:59 02/13/19 07:59 02/13/19 07:59 02/13/19 07:59 Oxygen Devices in Use Now: None Appearance: nad, pleasant Ears/Nose/Mouth/Throat: Clear Oropharnyx, Mucous Membranes Moist Neck: NL Appearance and Movements; NL JVP, Trachea Midline Respiratory: Symmetrical Chest Expansion and Respiratory Effort, Clear to Auscultation Cardiovascular: NL Sounds; No Murmurs; No JVD, RRR, No Edema, - Abdominal: - - soft, obese, nontender Lymphatic: No Cervical Adenopathy Extremities: No Edema, No Clubbing, Cyanosis Skin: No Rash or Ulcers Neurological: Alert and Oriented x 3 Laboratory Results: 02/13/19 09:00 02/13/19 08:54 INR (Anticoag Therapy) 0.97 (0.82-1.09) 02/12/19 06:57 Total Bilirubin 0.60 mg/dL (0.2-1.0) 02/12/19 06:57 AST 17 U/L (13-39) 02/12/19 06:57 ALT 22 U/L (7-52) 02/12/19 06:57 Alkaline Phosphatase 120 U/L (34-104) H 02/12/19 06:57 Total Protein 7.1 g/dL (6.4-8.9) 02/12/19 06:57 Albumin 4.2 g/dL (3.2-5.2) 02/12/19 06:57 Globulin 2.9 g/dL (2-4) 02/12/19 06:57 Albumin/Globulin Ratio 1.4 (1-3) 02/12/19 06:57 TSH 0.10 mcIU/mL (0.34-5.60) L 02/12/19 06:57 02/12/19 02/12/19 02/12/19 06:57 13:53 16:47 Troponin I 0.00 0.00 0.00 Diagnostic Imaging: CXR Exam Date: 02/12/19 The film is degraded by poor exposure. Overlying support devices obscure the [id number]. The lungs are clear. There is no pleural effusion. The cardiomediastinal silhouette is within normal limits. IMPRESSION: No focal airspace consolidation. Transthoracic Echocardiogram Study Date: 02/12/2019 Conclusions Summary: - Left ventricle: The cavity size is normal. Wall thickness is mildly increased. Systolic function is at the lower limits of normal. The estimated ejection fraction is 50-55%. Wall motion is normal; there are no regional wall motion abnormalities. - Right ventricle: The cavity size is normal. Systolic function is mildly reduced. - Left atrium: The atrium is mildly dilated. - Ascending aorta: The ascending aorta is mildly dilated at 3.9 cm. - No significant valvular abnormalities noted. Transesophageal Echocardiogram Study Date: 02/12/2019 Summary: Left atrium: There is no evidence of a thrombus in the atrial cavity or appendage. Recommendations: Study was terminated early due to patients inability to cooperate with exam despite high doses of sedation medicaton. Follow by successful cardioversion from atrial fibrillation to sinus rhythm. EKG Data: ekg on admission afib 135 bpm, rv strain pattern of s1/q3/t3 ekg post-CV NSR, borderline ivcd, s1/q3/t3 pattern Assessment/Plan 1. Symptomatic atrial fibrillation, chads2-vasc score at least 1 - s/p PETROS/CV 02/12/2019 2. Obesity 3. HTN 4. Sleep apnea 5. Hypothyroidism s/p thyroidectomy - Continue eliquis 5 mg po bid - Continue [employer] medications except change amlodipine to long acting diltiazem 180 mg po daily to help rate control future episodes - We again discussed need for weight loss as likely main underlying cause of arrhythmia - Would ensure thyroid dose/labs is at goal - d/c IV fluids (ordered) Thank you for allowing me to participate in the cardiovascular care of this patient. Please do not hesitate to contact me with questions or concerns.
[2019-02-13 11:59] VITALS: BP 139/92
--- NOTE | 2019-02-13 21:52 | DS ---
CC: Dr. Kaplan; Dr. Collin Pleitez * DISCHARGE SUMMARY: DATE OF ADMISSION: 02/12/19. DATE OF DISCHARGE: 02/13/19. PRIMARY CARE PROVIDER: Dr. Kaplan. MY ATTENDING FOR TODAY: Dr. Laura Manning.* (DICTATED BY EDUARDO GARAY NP) HOSPITAL COURSE: Please refer to the admitting H and P on 02/12/19, but in short, Mr. Lan is a very pleasant 53-year-old male patient with a history significant for obesity, hypertension, obstructive sleep apnea, thyroidectomy for thyroid cancer who presented to the hospital with some palpitations. The patient states that he had palpitations starting on Saturday and he felt his heart beat was fast and irregular. He came to the emergency department for evaluation. He was noted to be in AFib with RVR. Heart rates in the 120s. He was admitted to observation. He was seen by Dr. Collin Pleitez of Cardiology. Dr. Pleitez started the patient on Eliquis. The patient was already on a beta- gladys. He was placed on Cardizem for rate control. Dr. Pleitez recommended PETROS cardioversion. He underwent that procedure on 02/12/19. Please refer to Dr. Pleitez's note on that procedure. The patient was successfully cardioverted. He was continued on his Eliquis 5 mg 2 times a day. He was continued on his Cardizem of 180 mg extended release. He did not show any ectopy on telemetry post cardioversion. He remained in sinus rhythm. He was ultimately cleared by Dr. Pleitez for discharge to home. REVIEW OF SYSTEMS: His review of systems on day of discharge, the patient denies any fever, fatigue, or chills. No chest pain, no shortness of breath, no palpitations, no dizziness, no abdominal pain, no nausea, no vomiting. No urinary complaints, no arthralgias or myalgias and no further constitutional complaints. PHYSICAL EXAMINATION: His physical exam reveals a well-appearing gentleman in no acute distress. Vital signs are, blood pressure 139/92, heart rate 75, respiratory rate 20, O2 saturation 98% on room air with temperature of 97.4. HEENT: The patient is atraumatic, normocephalic. PERRLA. Nonicteric sclerae. Oral mucosa is moist. Tongue is midline. Neck is supple. Nontender. No JVD noted. No carotid bruits auscultated. Cardiovascular: S1 and S2 present. Rate and rhythm are currently regular with no murmurs, gallops or rubs noted. Lungs are clear bilaterally to auscultation with no wheezing, rhonchi, or rales. Abdomen is soft, nontender, nondistended. Positive bowel sounds of all 4 quadrants. Moderately obese. : Deferred. Musculoskeletal: There is no clubbing, no cyanosis, no edema. Positive distal pulses palpable. Full range of motion. Steady gait. Neurologic: Grossly intact with no focal deficits. Psychiatric: Cooperative and appropriate. DIAGNOSTIC STUDIES/LAB DATA: WBC is 5.6, RBC is 5.37, hemoglobin 15.5, hematocrit 44, platelets 198. Sodium 137, potassium 3.8, chloride 103, CO2 29, BUN 14, creatinine 0.91, glucose 123, calcium 9.1, magnesium 2.1. Bilirubin 0.60, AST 17, ALT 22, alk phos 120. Troponins were negative at 0.00 x3. Total protein 7.1, albumin 4.2, globulin 2.9, albumin-globulin ratio 1.4, TSH is 0.10. Imaging: Transthoracic echocardiogram post procedure reveals left ventricle cavity size is normal. Wall thickness is mildly increased. Systolic function is at lower limits of normal with an estimated ejection fraction of 50% to 55%. Wall motion is normal. There is no regional wall motion abnormalities. Right ventricle cavity size is normal. Systolic function is mildly reduced. Left atrium is mildly dilated. Ascending aorta is mildly dilated at 3.9 cm. There was no significant valvular abnormalities noted. Chest x-ray at admission shows no focal abnormalities. DISCHARGE DIAGNOSES: 1. New onset atrial fibrillation with rapid ventricular response, status post successful PETROS and cardioversion. 2. History of papillary thyroid cancer status post thyroidectomy. 3. History of obstructive sleep apnea, on CPAP. 4. History of hypertension, stable. 5. Hypertension. DISCHARGE MEDICATIONS: Include, 1. Metoprolol succinate 25 mg p.o. daily. 2. Potassium chloride 10 mEq p.o. b.i.d. 3. Levothyroxine 250 mcg in the morning. Medication changes: 1. Aldactazide 25/25 mg 1 tab p.o. daily. 2. Diltiazem (Cardizem CD) 180 mg p.o. daily. 3. Apixaban 5 mg p.o. b.i.d. Discontinued medication is Norvasc. DISPOSITION: The patient was discharged to home in the care of his in stable condition. All questions were answered. The patient stated understanding of his discharge instructions and followup. FOLLOWUP: The patient is instructed to follow up with Dr. Kaplan, his primary care provider in the next [address] to [address] Collin Pleitez of Cardiology in the next 2 to 3 weeks. DIET: Heart healthy as tolerated. ACTIVITY: Progress activity as tolerated. We recommend that the patient avoid any other stimulating agents. Again, patient was discharged in stable condition. TIME SPENT: Thirty-five minutes on discharge planning, followup, and patient education. EDUARDO GARAY NP [id number]/CPS #: [id number] LUDMILA
== END 2019-02-13 12:18 | disposition home or self-care (01) ==
LOC: ED 06:38 → MEDTELE 08:26
PROVIDERS: ADMIT Internal Medicine; ATTEND Internal Medicine
DX: I48.91 Unspecified atrial fibrillation (principal); Z85.850 Personal history of malignant neoplasm of thyroid; G47.33 Obstructive sleep apnea (adult) (pediatric); I10 Essential (primary) hypertension; Z79.899 Other long term (current) drug therapy; E66.9 Obesity, unspecified; E89.0 Postprocedural hypothyroidism; G47.30 Sleep apnea, unspecified
CPT/HCPCS: 36415; 71045; 80048; 80053; 83735; 84443; 84484; 85025; 85610; 92960; 93005; 93306; 93312; 93325; 96361; 96374; 99156; 99157; 99284; A9270-GY; C8929; G0378; J1200; J2250; J2310; J3010

== ENCOUNTER 2024-06-30 08:53 | Observation (INO) ==
[~2024-06-30 08:53] MED LIST: Dexamethasone IV 4 MG/ML VIAL 1 ml VIAL ONE; HYDROmorphone 1 MG/1 ML SYRINGE IV PRN; Midazolam 2 mg/2 ml VIAL 1 mg/ml 2 ml VIAL (2 mg) ONE; Naloxone 0.4 mg VIAL 0.4 mg/ml 1 ml VIAL IV PRN; Ondansetron 4 mg VIAL 2 MG/ML 2 ml VIAL IV PRN; Ondansetron 4 mg VIAL 2 MG/ML 2 ml VIAL ONE; Propofol 10 MG/ML 20 ML BTL ONE; fentaNYL 100 mcg/2 ml 50 MCG/ML VIAL IV PRN; fentaNYL 100 mcg/2 ml 50 MCG/ML VIAL ONE
[2024-06-30] MEDS: Buffered Lidocaine 1% SYRIN 1 ml INTRADERM ONE (09:13)
[2024-06-30] MEDS ORDERED: ceFAZolin *3* GM in NS PREMIX 3 GM/100 ML BAG IV ONE (09:16)
[2024-06-30] MEDS ORDERED: Tranexamic Acid 1 GM/100ML BAG 2,000 MG/200 ML BAG IV ONE (09:16)
[2024-06-30] MEDS: Lactated Ringers 1000 ml BAG 1,000 ML IV SCH ×2 (09:21→15:34)
[2024-06-30 09:30] LABS: Rapid COVID-19 Molecular Undetected (Undetected)
[2024-06-30] MEDS ORDERED: Midazolam 2 mg/2 ml VIAL 1 mg/ml 2 ml VIAL (2 mg) ONE (10:02)
[2024-06-30] MEDS ORDERED: Dexamethasone IV 4 MG/ML VIAL 1 ml VIAL ONE (10:02)
[2024-06-30] MEDS ORDERED: ROPIVACAINE 5 MG/ML 30 ML BTL (0.5%) ONE ×2 (10:03→10:21)
[2024-06-30] MEDS ORDERED: KETAMINE HCL 10 MG/ML 20 ml VIAL (200 MG) ONE (10:22)
[2024-06-30] MEDS ORDERED: Propofol 10 MG/ML 20 ML BTL ONE ×4 (11:51→13:01)
[2024-06-30] MEDS ORDERED: Lactulose 30 ml UDC PO PRN (12:03)
[2024-06-30] MEDS ORDERED: Ondansetron 4 mg VIAL 2 MG/ML 2 ml VIAL IV PRN (12:03)
[2024-06-30] MEDS ORDERED: Calcium Carb (TUMS) 500 mg CHEW TAB PO PRN (12:03)
[2024-06-30] MEDS ORDERED: Magnesium Hydroxide LIQ 30 ML UDC PO PRN (12:03)
[2024-06-30] MEDS ORDERED: Morphine 2 MG/ML SYRINGE IV PRN (12:03)
[2024-06-30] MEDS ORDERED: Ondansetron ODT 4 mg TAB 4 MG TAB PO PRN (12:03)
[2024-06-30] MEDS ORDERED: Glycopyrrolate IV 0.2 MG/ML 1 ML VIAL ONE (13:15)
[2024-06-30] MEDS: Acetaminophen IV 1 GM/100ML 1,000 MG/100 ML BAG IV ONE (15:06)
[2024-06-30] MEDS: Scopolamine 1 mg/72hr PATCH TRANSDERM ONE (15:06)
[2024-06-30] MEDS: ceFAZolin *3* GM in NS PREMIX 3 GM/100 ML BAG IV SCH (19:33)
[2024-06-30] MEDS: Potassium Chlor 10 meq TAB PO SCH (23:49)
[2024-06-30] MEDS: Magnesium Hydroxide LIQ 30 ML UDC PO SCH (23:51)
[2024-07-01 05:56] LABS: Hematocrit 37.6 % (38-53); Hemoglobin 13.1 g/dL (13.2-16.3); Mean Platelet Volume 7.6 fL (7.5-11.2); Platelet Count 205 10^3/uL (150-450)
[2024-07-01 06:55] LABS: Calcium 8.8 mg/dL (8.6-10.3); Creatinine, Serum 1.05 mg/dL (0.67-1.17); Potassium 4.3 mmol/L (3.5-5.0); eGFR CKD-EPI 82.8 (>60)
[2024-07-01] MEDS: Vitamin THERAPEUTIC TAB PO SCH (08:46)
[2024-07-01 09:51] VITALS: BP 140/71
== END 2024-07-01 12:20 | disposition home or self-care (01) ==
LOC: SSU 08:53 → OR 08:53
PROVIDERS: ADMIT Orthopaedic Surgery Adult Reconstructive Orthopaedic Surgery; ATTEND Orthopaedic Surgery Adult Reconstructive Orthopaedic Surgery